=== PATIENT | male | born 1985 | race Caucasian/White ===

== ENCOUNTER → 2020-07-04 | Outpatient (CLI) | payer OTHER ==
[~2020-07-04] MED LIST: IBUPROFEN600 MG PO; NORFLEX 100 MG100 MG PO; Voltaren Gel 1 % TOP
[2020-07-04 15:40] LABS: HEMOGLOBIN 15.6 gm/dl (14.0-17.5); RED BLOOD COUNT 5.22 M/UL (4.20-5.50); WHITE BLOOD COUNT 5.2 K/UL (4.5-11.0)
[2020-07-04 16:19] LABS: BUN/CREATININE RATIO 19 (0-10)
[2020-07-06 08:14] LABS: THYROXINE (T4) 7.9 ug/dL (4.5-12.0); TRIIODOTHYRONINE (T3) 111 ng/dL (71-180)
[2020-07-06 10:14] LABS: RHEUMATOID ARTHRITIS FACTOR 76.9 IU/mL (0.0-13.9)
== END ==
LOC: LAB 14:50
PROVIDERS: Nurse Practitioner
DX: G89.29 Other chronic pain (principal); M06.9 Rheumatoid arthritis, unspecified; R53.83 Other fatigue; M25.511 Pain in right shoulder
CPT/HCPCS: 36415; 73030; 73110; 73130; 80053; 80061; 81001; 84436; 84443; 84480; 85025; 85652; 86038; 86140; 86431